=== PATIENT | male | born 2000 | race Caucasian/White ===

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

== ENCOUNTER 2020-01-04 09:09 | Emergency (ER) | payer MEDICAID ==
[~2020-01-04] VITALS: Ht 180.3 cm; Wt 104.3 kg
[~2020-01-04 09:09] MED LIST changes: -ETOMIDATE (2MG/ML) 20ML VIAL IV ONE; -MORPHINE SULF INJ 2 MG/ML SYRINGE 1ML IV ONE; -ONDANSETRON HCL 4 MG/2 ML VIAL IV ONE; -TETANUS-DIPTH-ACEL PERTUSSIS 0.5ML SYR Tdap IM ONE
[2020-01-04 09:26] VITALS: BP 140/88
== END 2020-01-04 10:52 | disposition home or self-care (01) ==
LOC: ER 09:09
DX: S52.502A Unspecified fracture of the lower end of left radius, initial encounter for closed fracture (principal); V43.52XA Car driver injured in collision with other type car in traffic accident, initial encounter; Y93.89 Activity, other specified; Y92.488 Other paved roadways as the place of occurrence of the external cause; Y99.8 Other external cause status
CPT/HCPCS: 73110

== ENCOUNTER 2022-06-19 19:33 | Emergency (ER) | payer MEDICAID ==
[~2022-06-19] VITALS: Ht 180.3 cm; Wt 113.0 kg
[2022-06-19] MEDS ORDERED: ONDANSETRON HCL 4 MG/2 ML VIAL IV ONE (22:00)
[2022-06-19] MEDS ORDERED: HYDROmorphone HCL 2 MG/ML VL/or syr IV ONE (22:00)
[2022-06-19] MEDS ORDERED: PROPOFOL 10 MG/ML 20 ML IV ONE ×3 (22:30)
[2022-06-20] MEDS ORDERED: ONDANSETRON HCL 4 MG/2 ML VIAL IV ONE (01:00)
[2022-06-20] MEDS ORDERED: fentaNYL CITRATE 100 MCG/2 ML VL IV ONE (01:00)
[2022-06-20] MEDS ORDERED: acetaZOLAMIDE SODIUM 500 MG VL IV ONE (02:45)
[2022-06-20] MEDS ORDERED: LIDOCAINE W/ EPINEPHRINE 2% INJ 20ML VIAL IJ ONE (03:00)
[2022-06-20] MEDS ORDERED: HYDROmorphone HCL 2 MG/ML VL/or syr IV ONE (03:30)
[2022-06-20] MEDS ORDERED: PERCOT PO (05:08)
[2022-06-20 05:17] VITALS: BP 152/82
[2022-06-20] MEDS ORDERED: OXYCODONE W/ ACETAMINOPHEN 5/325MG TABLET PO ONE (05:30)
== END 2022-06-20 05:34 | disposition home or self-care (01) ==
LOC: ER 19:33
DX: S43.085A Other dislocation of left shoulder joint, initial encounter (principal); S43.004A Unspecified dislocation of right shoulder joint, initial encounter; S42.292A Other displaced fracture of upper end of left humerus, initial encounter for closed fracture; S42.291A Other displaced fracture of upper end of right humerus, initial encounter for closed fracture; S01.111A Laceration without foreign body of right eyelid and periocular area, initial encounter; F10.20 Alcohol dependence, uncomplicated; Z77.22 Contact with and (suspected) exposure to environmental tobacco smoke (acute) (chronic); Z88.6 Allergy status to analgesic agent; Y90.9 Presence of alcohol in blood, level not specified; V86.56XA Driver of dirt bike or motor/cross bike injured in nontraffic accident, initial encounter; Y93.55 Activity, bike riding; Y92.89 Other specified places as the place of occurrence of the external cause; Y99.8 Other external cause status
CPT/HCPCS: 12011; 23650; 70450; 73020; 73030; 96374; 96375; 96376; 99285; J1170; J2405; J2704; J3010

== ENCOUNTER 2022-11-05 22:13 | Emergency (ER) | payer MEDICAID ==
[~2022-11-05] VITALS: Ht 180.3 cm; Wt 118.2 kg
[~2022-11-05 22:13] MED LIST changes: +PERCOT PO
[2022-11-05] MEDS ORDERED: SODIUM CHLORIDE 0.9% 1,000 ML IV ONE (23:00)
[2022-11-05] MEDS ORDERED: ONDANSETRON HCL 4 MG/2 ML VIAL IV ONE (23:00)
[2022-11-05 23:22] VITALS: TEMP 97.7
[2022-11-05 23:40] LABS: Basophils # (auto) 0 10 ^3/uL (0-0.2); Basophils % (auto) 0.6 % (0.0-2.0); Eosinophils # (auto) 0.1 10 ^3/uL (0-0.8); Eosinophils % (auto) 1.3 % (0.0-7.0); Hematocrit 43.6 % (41.0-53.0); Hemoglobin 14.3 g/dL (13.5-17.5); Lymphocytes # (auto) 1.7 10 ^3/uL (0.4-5.4); Lymphocytes % (auto) 22.2 % (10.0-50.0); Mean Corpuscular Hemoglobin 27.5 pg (28.0-32.0); Mean Corpuscular Hgb Conc. 32.7 g/dL (32.0-36.0); Monocytes # (auto) 0.6 10 ^3/uL (0-1.3); Monocytes % (auto) 8.1 % (0.0-12.0); Neutrophils # (auto) 5.3 10 ^3/uL (1.6-8.6); Neutrophils % (auto) 67.8 % (37.0-80.0); Nucleated Red Blood Cells % 0.1 %; Red Blood Cells 5.19 10^6/uL (4.5-5.90); Red Cell Distribution Width 15.2 % (11.8-14.3); White Blood Cell 7.8 10^3/uL (4.4-10.8)
[2022-11-05 23:48] VITALS: PULSE 74; RESP 22; O2SAT 95
[2022-11-06 00:05] LABS: Acetaminophen < 2.0 UG/ML (10.0-20.0)
[2022-11-06 00:07] LABS: Alanine Aminotransferase 72 U/L (7-40); Albumin 4.5 g/dL (3.2-4.8); Alkaline Phosphatase 68 U/L (46-116); Anion Gap 8.4 (5-15); Aspartate Aminotransferase 47 U/L (13-40); Blood Alcohol 219.2 mg/dL (<10); Calcium 8.6 mg/dL (8.7-10.4); Carbon Dioxide 23.6 mmol/L (20-30); Chloride 109 mmol/L (98-107); Glucose 125 mg/dL (74-106); Potassium 3.3 mmol/L (3.5-5.1); Sodium 141 mmol/L (136-145)
[2022-11-06 00:08] LABS: Bilirubin, Total 0.2 mg/dL (0.2-1.0); Total Protein 8.1 g/dL (5.7-8.2)
[2022-11-06 00:15] LABS: Salicylate < 3.0 mg/dL (2.8-20.0)
[2022-11-06 00:24] LABS: BUN/Creatinine Ratio 5.4 (10.0-20.0); Blood Urea Nitrogen < 5 mg/dL (9-23)
[2022-11-06 01:05] LABS: Urine Bacteria NONE SEEN /hpf (None Seen); Urine Blood Negative /uL (Negative); Urine Clarity Clear (Clear); Urine Color Straw (Yellow); Urine Protein, UAD Negative (Negative); Urine Specific Gravity 1.007 (1.001-1.035); Urine Urobilinogen Normal (Negative); Urine WBC 1 /hpf (0 - 3); Urine pH 5.5 (5.0-8.0)
[2022-11-06 01:06] LABS: Amphetamine Screen, Urine Neg (NEGATIVE); Barbiturate Scree,Urine Neg (NEGATIVE); Benzodiazephine Screen, Urine Neg (NEGATIVE); Cannabinoid Screen, Urine Pos (NEGATIVE); Cocaine Screen, Urine Neg (NEGATIVE); Opiate Scree,Urine Neg (NEGATIVE); Phencyclidine Screen, Urine Neg (NEGATIVE)
[2022-11-06 03:22] VITALS: BP 113/73; PULSE 74; RESP 20; O2SAT 95
== END 2022-11-06 03:15 | disposition home or self-care (01) ==
LOC: ER 22:13 → EDBD 22:13 → ER 11-06 03:15
DX: S06.0X0A Concussion without loss of consciousness, initial encounter (principal); F10.129 Alcohol abuse with intoxication, unspecified; F12.10 Cannabis abuse, uncomplicated; Z77.22 Contact with and (suspected) exposure to environmental tobacco smoke (acute) (chronic); Z88.6 Allergy status to analgesic agent; Z79.899 Other long term (current) drug therapy; W18.39XA Other fall on same level, initial encounter; Y93.89 Activity, other specified; Y92.89 Other specified places as the place of occurrence of the external cause; Y99.8 Other external cause status; Y90.9 Presence of alcohol in blood, level not specified
CPT/HCPCS: 36415; 70450; 80053; 80307; 80320; 80329; 81001; 85025; 96361; 96374; 99285; J2405; J7030